=== PATIENT | male | born 1960 | race Caucasian/White ===

== ENCOUNTER 2017-12-07 08:30 | Observation (INO) | payer BC ==
[2018-03-04] MEDS ORDERED: TRANEXAMIC ACID 3,000 MG in NS (SYRINGE) 50 ML IRR ONE (06:00)
[2018-03-04] MEDS ORDERED: ROPIVACAINE 0.2% 80 MG, EPINEPHrine 0.2 MG, KETOROLAC TROMETHAMINE 30 MG in SYRINGE 0 ML IU ONE (06:00)
[2018-03-04] MEDS ORDERED: ACETAMINOPHEN 325 MG TAB PO ONE (06:14)
[2018-03-04] MEDS ORDERED: ceFAZolin 2 GM/DEXTROSE 100 ML IV ONE (06:14)
[2018-03-04] MEDS ORDERED: DEXAMETHASONE 4 MG/ML VIAL IVP ONE (06:14)
[2018-03-04] MEDS ORDERED: FAMOTIDINE 20 MG TAB PO ONE (06:14)
[2018-03-04] MEDS ORDERED: LR 1,000 ML IV ONE (06:14)
--- NOTE | 2018-03-04 06:38 | PDHPUP ---
History & Physical Update H&P update statement: This history and physical update is based on an assessment of the patient which was completed after admission or registration (within 24 hours), but prior to the surgery/procedure. H&P update: H&P reviewed & patient examined, no change in patient's condition since H&P completed
[2018-03-04] MEDS ORDERED: VANCOMYCIN 1 GM VIAL ONE (07:36)
[2018-03-04] MEDS ORDERED: TRANEXAMIC ACID 3,000 MG/50 ML BAG IRR ONE (07:36)
[2018-03-04] MEDS ORDERED: MIDAZOLAM 2 MG/2 ML VIAL ONE (07:59)
[2018-03-04] MEDS ORDERED: MIDAZOLAM 2 MG/2 ML VIAL IVP ONE (08:03)
[2018-03-04] MEDS ORDERED: PROPOFOL/EMULSION 500 MG/50 ML BOTTLE IV ONE ×3 (08:06→09:00)
[2018-03-04] MEDS ORDERED: fentaNYL 100 MCG/2 ML INJ ONE ×2 (08:33→08:35)
[2018-03-04] MEDS ORDERED: ALBUTEROL 3 ML DEYVIAL IH PRN (08:49)
[2018-03-04] MEDS ORDERED: fentaNYL 100 MCG/2 ML INJ IVP PRN (08:49)
[2018-03-04] MEDS ORDERED: ONDANSETRON 4 MG/2 ML VIAL IVP PRN ×2 (08:49→09:52)
[2018-03-04] MEDS ORDERED: NALOXONE HCL 0.4 MG/ML INJ IVP PRN (08:49)
[2018-03-04] MEDS ORDERED: PROMETHAZINE HCL 25 MG/ML INJ IVP PRN ×2 (08:49→09:52)
[2018-03-04] MEDS ORDERED: ACETAMINOPHEN 500 MG TAB PO PRN (08:49)
[2018-03-04] MEDS ORDERED: HYDROCODONE/APAP 5/325 TAB PO PRN (08:49)
[2018-03-04] MEDS ORDERED: HYDROmorphONE/DILAUDID 2 MG/ML INJ IVP PRN (08:49)
[2018-03-04] MEDS ORDERED: oxyCODONE IR 5 MG TAB PO PRN ×2 (08:49→09:52)
[2018-03-04] MEDS ORDERED: DEXAMETHASONE 4 MG/ML VIAL IVP PRN (08:49)
--- NOTE | 2018-03-04 08:49 | PDANEPAE ---
ANE History of Present Illness here for R knee re-surfacing ANE Past Medical History - Cardiovascular History Hx Hypertension: Yes Hx Arrhythmias: No Hx Chest Pain: No Hx Coronary Artery / Peripheral Vascular Disease: No Hx CHF / Valvular Disease: No Hx Palpitations: No - Pulmonary History Hx COPD: No Hx Asthma/Reactive Airway Disease: No Hx Recent Upper Respiratory Infection: No Hx Oxygen in Use at Home: No Hx Sleep Apnea: No Sleep Apnea Screening Result - Last Documented: Positive Pulmonary History Comment: DANIAL Triggers only - Neurologic History Hx Cerebrovascular Accident: No Hx Seizures: No Hx Dementia: No Neurologic History Comment: occ numbness right leg, foot t/r back surgery - Endocrine History Hx Diabetes: No - Renal History Hx Renal Disorders: No - Liver History Hx Hepatic Disorders: No - Neurological & Psychiatric Hx Hx Neurological and Psychiatric Disorders: No - Cancer History Hx Cancer: Yes Cancer History Comment: melanoma removal - Congenital Disorder History Hx Congenital Disorders: No - GI History Hx Gastrointestinal Disorders: No - Other Health History Other Health History: wears glasses/contacts - Chronic Pain History Chronic Pain: No - Surgical History Prior Surgeries: right knee ACL repair. L4-5 laminectomy, 2014. right shoulder surgery 2017 ANE Review of Systems Review of systems is: negative Review of Systems: - Exercise capacity Exercise capacity: >=4 METS METS (RN): 5 METS ANE Patient History - Allergies Allergies/Adverse Reactions: Sulfa (Sulfonamide Antibiotics) Allergy (Verified 02/07/18 12:27) 'felt like had the flu', turned bright red sulfamethoxazole [From Bactrim] Allergy (Verified 02/07/18 12:27) 'felt like had the flu', turned bright red trimethoprim [From Bactrim] Allergy (Verified 02/07/18 12:27) 'felt like had the flu', turned bright red - Home Medications Home medications: home medication list seen and reviewed Home Medications: Enalapril Maleate [Vasotec 20 MG (*)] 20 mg PO DAILY 02/04/18 [Last Taken ] Tamsulosin HCl [Flomax 0.4 MG (*)] 0.4 mg PO DAILY 02/04/18 [Last Taken 03/03/18 ] amLODIPine BESYLATE [Norvasc 10 mg (*)] 10 mg PO DAILY 02/04/18 [Last Taken 12/11] - NPO status NPO Status: no food or drink >8 hours NPO Since - Liquids (Date): 03/03/18 NPO Since - Liquids (Time): 20:00 NPO Since - Solids (Date): 03/03/18 NPO Since - Solids (Time): 20:00 - Smoking Hx Smoking Status: Never smoked - Family Anes Hx Family Hx Anesthesia Complications: none ANE Labs/Vital Signs - Vital Signs Vital Signs: reviewed preoperatively; see RN documention for details Blood Pressure: 125/85 Heart Rate: 74 Respiratory Rate: 15 O2 Sat (%): 95 Height: 177.8 cm Weight: 81.647 kg ANE Physical Exam - Airway Neck exam: FROM Mallampati Score: Class 1 - Pulmonary Pulmonary: no respiratory distress - ASA Status ASA Status: II ANE Anesthesia Plan Anesthesia Plan: MAC, spinal Regional Anesthesia: adductor canal FNB Urgent/Emergent Case: Elijah cazares completed preop but documented later for safe timely pt care
--- NOTE | 2018-03-04 09:51 | POSTOPPROG ---
Post Op Note Date of Operation: 03/04/18 Surgeon: Nguyễn Gupta Put In Beat Adjuster: nghia gupta PA-C Anesthesiologist: dr. singh Anesthesia: Spinal, Other (Specify) (adductor canal block) Pre-op Diagnosis: right knee OA Post-op Diagnosis: same Indication: right knee OA Procedure: right knee partial knee arthroplasty, lateral compartment Findings: severe lateral knee OA Inf/Abcess present in the surg proc area at time of surgery?: No EBL: 50-100
[2018-03-04] MEDS ORDERED: CYCLOBENZAPRINE 10 MG TAB PO PRN (09:52)
[2018-03-04] MEDS ORDERED: POLYETHYLENE GLYCOL 3350 17 GM PKT PO PRN (09:52)
[2018-03-04] MEDS ORDERED: ONDANSETRON DISINTEGRATING 4 MG TAB PO PRN (09:52)
[2018-03-04] MEDS ORDERED: PROMETHAZINE HCL 25 MG SUPPR PR PRN (09:52)
[2018-03-04] MEDS ORDERED: MAGNESIUM HYDROXIDE 30 ML UDCUP PO PRN (09:52)
[2018-03-04] MEDS ORDERED: BISACODYL 10 MG SUPP PR PRN (09:52)
[2018-03-04] MEDS ORDERED: TEMAZEPAM 15 MG CAP PO PRN (09:52)
[2018-03-04] MEDS ORDERED: DIPHENOXYLATE/ATROPINE LOMOTIL 1 TAB PO PRN (09:52)
[2018-03-04] MEDS ORDERED: LACTULOSE 20 GM/30 ML UDCUP PO PRN (09:52)
[2018-03-04] MEDS ORDERED: diphenhydrAMINE 25 MG CAP PO PRN (09:52)
[2018-03-04] MEDS ORDERED: METOCLOPRAMIDE 10 MG/2 ML VIAL IVP PRN (09:52)
[2018-03-04] MEDS ORDERED: LR 1,000 ML IV SCH (10:00)
[2018-03-04] MEDS: ACETAMINOPHEN 325 MG TAB PO SCH ×3 (12:38→22:58)
[2018-03-04] MEDS: ceFAZolin 2 GM/DEXTROSE 100 ML IV SCH ×2 (15:38→22:59)
[2018-03-04] MEDS: SENNOSIDES/DOCUSATE SODIUM TAB PO SCH (20:09)
[2018-03-04] MEDS: FAMOTIDINE 20 MG TAB PO SCH (20:09)
[2018-03-04] MEDS: ASPIRIN 81 MG CHEWABLE TAB PO SCH (20:09)
[2018-03-05] MEDS: ACETAMINOPHEN 325 MG TAB PO SCH ×2 (05:13→11:41)
--- NOTE | 2018-03-05 05:13 | GOP ---
DATE OF OPERATION: 03/04/2018 SURGEON: Belia Horton MD CITY PLANNER: DARRICK Seals ANESTHESIA: Spinal. PREOPERATIVE DIAGNOSIS: Right knee osteoarthritis. POSTOPERATIVE DIAGNOSIS: Right knee osteoarthritis. PROCEDURE PERFORMED: right lateral compartment partial knee replacement with computer navigation, robotic assist. FINDINGS: ESTIMATED BLOOD LOSS: 30 cc. INDICATIONS: The patient is a 57-year-old male with severe and progressive pain and deformity of the right knee unresponsive to conservative care. Risks and benefits of the surgical intervention were explained in detail. DESCRIPTION OF PROCEDURE: The patient was brought to the operating room and placed on the table in supine position. Spinal anesthesia was induced without difficulty. A pneumatic tourniquet was applied about the right proximal thigh and the leg was prepped and draped in sterile fashion. Attention was turned first to the distal aspect of the right femur. At 3 cm proximal to the lateral rise of the femur, 2 percutaneous half pins were placed for fixation of the femoral array. In a similar fashion, 2 pins were placed anterolateral on the tibia for fixation of the tibial array. External land marking and registration of the hip center was performed without difficulty. After exsanguination by elevation, the tourniquet was inflated to 350 mmHg. Incision was made from the tibial tuberosity to the superior pole of the patella. Dissection was carried out through the subcutaneous tissue to the deep fascia using Bovie electrocautery for hemostasis. Lateral parapatellar arthrotomy was carried out to the superior pole of the patella. The lateral capsule was elevated and the infrapatellar fat pad was resected. Internal femoral and tibial registration was carried out without difficulty and the femoral and tibial checkpoints were placed and verified for accuracy. Attention was turned to the femur. The foot print for the size 5 femoral component was cut with the 6 mm bur using the GrowYo robotic system and verified for accuracy against the CT based plan. The hole was cut for the femoral post. In a similar fashion, the 6 mm bur was used to cut the foot print for the size 4 tibial component using the GrowYo system and verified for accuracy against the CT based plan. Attention was turned to the posterior aspect of the knee and remnants of the lateral meniscus were excised. The posterior capsule was injected with ropivacaine, epinephrine and Toradol. Trial reduction was carried out and there was excellent range of motion, alignment and stability using the size 5 femoral component, size 4 tibial component, 4 x 8 mm polyethylene. All trials were then removed. The joint was thoroughly irrigated and carefully dried. One package of cement and 1 gram of vancomycin were mixed in the vacuum mixer and placed on the fixation surfaces of all components. The components were implanted and all excess cement was thoroughly removed. Implant placement was verified against the CT view plan and found to be excellent. The tourniquet was deflated and all bleeders were coagulated. The wound was thoroughly irrigated and closed using interrupted sutures of 2-0 Vicryl for the joint capsule. The subcu was closed with 3-0 Vicryl and the skin with 4-0 Monocryl. Dermabond and Steri-Strips were applied, followed by a compressive dressing. The patient was then moved from the operating room to the recovery room in good condition, having tolerated the procedure well. CASE CLASSIFICATION: Clean. /[id number]/MODL MTDD
[2018-03-05 08:13] VITALS: BP 111/70
[2018-03-05] MEDS ORDERED: ENALAPRIL MALEATE 20 MG TAB PO SCH (09:00)
[2018-03-05] MEDS: ASPIRIN 81 MG CHEWABLE TAB PO SCH (09:06)
[2018-03-05] MEDS: SENNOSIDES/DOCUSATE SODIUM TAB PO SCH (09:06)
[2018-03-05] MEDS: TAMSULOSIN HCL 0.4 MG CAP PO SCH ×2 (09:06→09:11)
[2018-03-05] MEDS: FAMOTIDINE 20 MG TAB PO SCH (09:06)
--- NOTE | 2018-03-05 11:47 | SOAPPROG ---
SOAP Progress Note Assessment/Plan: Assessment: Patient is doing well POD 1 s/p R lateral partial knee arthroplasty Pain management: pain is well controlled on oral pain meds. VTE ppx: recommend aspirin 81 mg BID for 4 weeks, cont ARIA and SCDs Anemia: level is expected initially postop. Asymptomatic. Continue to monitor D/c planning: d/c to home today pending release from PT Plan: 03/05/18 11:46 Subjective: patient is doing well, denies SOB, chest pain and N/V. Objective: Vital Signs Temp Pulse Resp BP Pulse Ox 36.4 C 79 16 111/70 94 03/05/18 08:00 03/05/18 08:00 03/05/18 08:00 03/05/18 08:00 03/05/18 08:00 Laboratory Results 03/05/18 04:58 03/04/18 03/05/18 03/06/18 05:59 05:59 05:59 Intake Total 2024 Output Total 1030 Balance 995 RLE: incision dressing is clean and dry, NVI, +pf/df ICD10 Worksheet Patient Problems: Problems Problem Status Onset Primary localized osteoarthritis of right knee Acute
--- NOTE | 2018-03-11 05:53 | GDS ---
ADMISSION DIAGNOSIS: Right knee osteoarthritis. DISCHARGE DIAGNOSIS: Right knee osteoarthritis. PROCEDURE: Right partial knee arthroplasty lateral compartment, robotic assisted. VTE PROPHYLAXIS: Recommend aspirin 81 mg twice daily for 4 weeks. BRIEF DESCRIPTION OF HOSPITAL STAY: Patient was admitted for an elective joint arthroplasty. The pa tient tolerated the procedure well and has passed physical therapy. The patient was given appropriat e antibiotic prophylaxis and venous thromboembolism prophylaxis. The patient's pain was well control led on oral pain medication, patient was holding down food, and had urinated. Decision was made to d ischarge the patient. The patient was given post-operative prescriptions pre-operatively. PLAN: Please follow up as scheduled in Dr. Horton's office. /[id number]/MODL
== END 2018-03-05 11:57 | disposition home or self-care (01) ==
LOC: F3N 03-04 06:07
PROVIDERS: ADMIT Orthopaedic Surgery; ATTEND Orthopaedic Surgery
PROC: 0SRC0J9 Replacement of Right Knee Joint with Synthetic Substitute, Cemented, Open Approach (ICD-10-PCS; principal; 2018-03-04 08:15)
PROC: 8E0YXCZ Robotic Assisted Procedure of Lower Extremity (ICD-10-PCS; principal; 2018-03-04 08:15)
PROC: 8E0YXBZ Computer Assisted Procedure of Lower Extremity (ICD-10-PCS; principal; 2018-03-04 08:15)
DX: M17.11 Unilateral primary osteoarthritis, right knee (principal); I10 Essential (primary) hypertension; Z88.2 Allergy status to sulfonamides
CPT/HCPCS: 20985; 27446; 73560; 97116; 97161; 97530; G0378; C1713; J0171; J0690; J1100; J1885; J2250; J2704; J2795; J3010; J3370

== ENCOUNTER → 2018-03-03 | Outpatient (CLI) | payer BC | LOC: FIMAGING 07:51 | PROVIDERS: ATTEND Orthopaedic Surgery | DX: M17.11 Unilateral primary osteoarthritis, right knee (principal) ==